=== PATIENT | female | born 1990 | race Caucasian/White ===

== ENCOUNTER 2017-05-04 18:57 | Emergency (ER) | payer BC, OTHER ==
[~2017-05-04] VITALS: Ht 175.3 cm; Wt 120.0 kg
[2017-05-04 19:01] VITALS: BP 137/87
[2017-05-04] MEDS ORDERED: SODIUM CHLORIDE FLUSH 10ML SYR IVF ONE (19:30)
[2017-05-04] MEDS ORDERED: ONDANSETRON ODT 4 MG PO ONE (19:30)
[2017-05-04] MEDS ORDERED: MORPHINE SULFATE 4 MG/ML, 1ML IVPush PRN (19:30)
[2017-05-04] MEDS ORDERED: HYDROmorphone 1 MG/ML, 1ML ONE (19:56)
[2017-05-04] MEDS ORDERED: HYDROmorphone 1 MG/ML, 1ML IM ONE (20:00)
[2017-05-04] MEDS ORDERED: ONDANSETRON ODT 4 MG ONE (20:04)
[2017-05-04] MEDS: PLEASE ENTER ALLERGIES MC SCH ×4 (20:05→21:36)
[2017-05-04] MEDS ORDERED: MORPHINE SULFATE 4 MG/ML, 1ML ONE (20:31)
== END 2017-05-04 21:38 | disposition home or self-care (01) ==
LOC: ED 21:30
DX: G89.11 Acute pain due to trauma (principal); S82.65XA Nondisplaced fracture of lateral malleolus of left fibula, initial encounter for closed fracture; X37.1XXA Tornado, initial encounter; Y93.89 Activity, other specified; Y92.328 Other athletic field as the place of occurrence of the external cause; Y99.8 Other external cause status
CPT/HCPCS: 29515; 73610; 96372; 99284; J1170; Q0162